=== PATIENT | female | born 1995 | race African-American/Black ===

== ENCOUNTER 2016-03-05 13:56 | Inpatient (IN) | payer OTHER ==
[~2016-03-05] VITALS: Ht 157.5 cm; Wt 64.0 kg
[~2016-03-05 13:56] MED LIST: BENADRYL50 MG PO; KEFLEX500 MG PO; KENALOG,ARISTOC15 GM TP; PERCOCET 5/31 TABLET PO; ZOFRAN ODT4 MG PO
[2016-03-05 16:11] LABS: HEMATOCRIT 40.2 % (36.0-46.0); MCH 25.3 PG (29.0-34.0); MCHC 32.6 G/DL (30.0-36.0); MCV 77.6 FL (83-99); MEAN PLAT.VOLUME 11.4 uM^3 (9.5-12.4); PLATELET COUNT 267 K/uL (156-360); RBC DIS.WIDTH-CV 16.9 % (11.8-14.6); RBC DIS.WIDTH-SD 46.8 % (39-53); RED BLOOD COUNT 5.18 M/uL (3.80-5.20); WHITE BLOOD COUNT 5.2 K/uL (4.1-10.2)
[2016-03-05 16:21] LABS: CHLORIDE 104 mEq/L (99-109); POTASSIUM 3.9 mEq/L (3.7-5.4); SODIUM 140 mEq/L (136-147)
[2016-03-05 16:23] LABS: GLUCOSE 87 mg/dL (70-99)
[2016-03-05 16:24] LABS: ANION GAP 11 MEQ/L (2-14)
[2016-03-05 16:27] LABS: GFR ESTIMATE (CALCULATED) > 59 mL/min/
[2016-03-05 16:29] LABS: UREA NITROGEN (BUN) 10 mg/dL (9-23)
[2016-03-05 16:30] LABS: SALICYLATE < 5.0 MG/DL (15-30)
[2016-03-05 16:37] LABS: QUANTITATIVE HCG < 4.0 MIU/ML
[2016-03-05 17:15] LABS: ADD MEDTOX COMMENT Y; AMPHETAMINE NEGATIVE (500 ng/mL); BARBITURATES NEGATIVE (200 ng/mL); BENZODIAZEPINES NEGATIVE (150 ng/mL); COCAINE NEGATIVE (150 ng/mL); INTERNAL CONTROLS VALID? YES; METHADONE NEGATIVE (200 ng/mL); METHAMPHETAMINE NEGATIVE (500 ng/mL); OPIATES (MORPHINE) NEGATIVE (100 ng/mL); OXYCODONE NEGATIVE (100 ng/mL); PHENCYCLIDINE NEGATIVE (25 ng/mL); PROPOXYPHENE NEGATIVE (300 ng/mL); THC CANNABINOIDS PRESUMPTIVE POSITIVE (50 ng/mL); TRICYCLIC ANTIDEPRESSANTS NEGATIVE (300 ng/mL)
[2016-03-05 17:55] VITALS: BP 113/86
[2016-03-06 07:59] VITALS: BP 109/61
[2016-03-06 15:27] VITALS: BP 140/77
[2016-03-07 09:25] VITALS: BP 101/54
[2016-03-07 15:55] VITALS: BP 119/71
[2016-03-08 07:45] VITALS: BP 113/71
[2016-03-08 15:00] VITALS: BP 116/67
[2016-03-09 07:38] VITALS: BP 100/51
[2016-03-09 15:26] VITALS: BP 101/61
[2016-03-10 07:28] VITALS: BP 100/59
[2016-03-10 15:38] VITALS: BP 115/65
[2016-03-11 07:55] VITALS: BP 112/56
[2016-03-11] MEDS ORDERED: HYDROXYZINE PAM25 MG PO (09:15)
[2016-03-11] MEDS ORDERED: BUPROPION XL150 MG PO (09:15)
== END 2016-03-11 11:47 | disposition home or self-care (01) | DRG 885 ==
LOC: EME 13:56 → EDOF 17:03 → 1WEST 17:03 → 2SOUTH 03-07 22:13 → 1WEST 03-07 22:14
PROVIDERS: Physician Assistant
DX: F33.0 Major depressive disorder, recurrent, mild (principal); F19.20 Other psychoactive substance dependence, uncomplicated; R45.851 Suicidal ideations; J45.909 Unspecified asthma, uncomplicated; F12.20 Cannabis dependence, uncomplicated; F60.9 Personality disorder, unspecified
CPT/HCPCS: 80048; 84702; 84999; 85027; 90839; 97003 GO; 97150 GO; 99281; 99285; G0478; G0480; Q0177